=== PATIENT | male | born 2000 | race Two or more races ===

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

== ENCOUNTER 2018-04-27 13:04 | Observation (INO) | payer SELFPAY ==
[~2018-04-27] VITALS: Ht 190.5 cm; Wt 118.3 kg
[~2018-04-27 13:04] MED LIST changes: -HYDROCODON-ACE1 EAC7 PO
[2018-04-27 13:43] LABS: HEMATOCRIT 42.1 % (38.0-50.0); MCH 32.8 PG (29.0-34.0); MCHC 35.6 G/DL (30.0-36.0); MCV 92.1 FL (86-99); PLATELET COUNT 191 K/uL (156-360); RBC DIS.WIDTH-SD 40.8 % (39-53); RED BLOOD COUNT 4.57 M/uL (4.00-5.50); WHITE BLOOD COUNT 12.8 K/uL (4.1-10.2)
[2018-04-27 14:13] LABS: CHLORIDE 109 MEQ/L (99-109); POTASSIUM 3.6 MEQ/L (3.7-5.4); SODIUM 142 MEQ/L (136-147)
[2018-04-27 14:19] LABS: CREATININE 0.8 MG/DL (0.6-1.3); GFR ESTIMATE (CALCULATED) > 59 mL/min/ (58.99-99999); GLUCOSE 102 mg/dL (70-99); UREA NITROGEN (BUN) 10 mg/dL (9-23)
[2018-04-27 18:11] VITALS: BP 173/99
[2018-04-27 20:04] VITALS: BP 146/80
[2018-04-27 23:59] VITALS: BP 137/68
[2018-04-28 03:36] VITALS: BP 130/63
[2018-04-28 05:32] LABS: HEMATOCRIT 41.7 % (38.0-50.0); HEMOGLOBIN 14.3 G/DL (12.5-16.6); MCH 31.9 PG (29.0-34.0); MCHC 34.3 G/DL (30.0-36.0); MCV 93.1 FL (86-99); PLATELET COUNT 227 K/uL (156-360); RBC DIS.WIDTH-CV 12.1 % (11.8-14.6); RBC DIS.WIDTH-SD 41.3 % (39-53); RED BLOOD COUNT 4.48 M/uL (4.00-5.50)
[2018-04-28 07:44] VITALS: BP 127/58
[2018-04-28 12:16] VITALS: BP 132/77
[2018-04-28 16:12] VITALS: BP 142/79
[2018-04-28 23:37] VITALS: BP 149/68
[2018-04-29 06:31] LABS: HEMATOCRIT 41.2 % (38.0-50.0); HEMOGLOBIN 13.9 G/DL (12.5-16.6); MCH 31.8 PG (29.0-34.0); MCHC 33.7 G/DL (30.0-36.0); MCV 94.3 FL (86-99); PLATELET COUNT 208 K/uL (156-360); RBC DIS.WIDTH-SD 41.8 % (39-53); RED BLOOD COUNT 4.37 M/uL (4.00-5.50); WHITE BLOOD COUNT 7.7 K/uL (4.1-10.2)
[2018-04-29 06:49] LABS: CHLORIDE 104 MEQ/L (99-109); CREATININE 0.7 MG/DL (0.6-1.3); GFR ESTIMATE (CALCULATED) > 59 mL/min/ (58.99-99999); GLUCOSE 101 mg/dL (70-99); POTASSIUM 4.1 MEQ/L (3.7-5.4); SODIUM 140 MEQ/L (136-147); UREA NITROGEN (BUN) 11 mg/dL (9-23)
[2018-04-29 08:10] VITALS: BP 152/56
[2018-04-29] MEDS ORDERED: HYDROCODON-ACE1 EAC7 PO (08:31)
== END 2018-04-29 10:59 | disposition home or self-care (01) ==
LOC: EME 13:04 → EDOF 13:42 → 3EAST 13:42 → EDOF 13:42 → ENRESERV 13:52 → 3EAST 17:38
PROVIDERS: Emergency Medicine; Physician Assistant Medical; Surgery
PROC: 0KQ80ZZ Repair Left Upper Arm Muscle, Open Approach (ICD-10-PCS; principal; 2018-04-27)
PROC: 3E0234Z Introduction of Serum, Toxoid and Vaccine into Muscle, Percutaneous Approach (ICD-10-PCS; principal; 2018-04-27)
PROC: 0HDEXZZ Extraction of Left Lower Arm Skin, External Approach (ICD-10-PCS; principal; 2018-04-27)
PROC: 05QY0ZZ Repair Upper Vein, Open Approach (ICD-10-PCS; principal; 2018-04-27)
DX: S45.812A Laceration of other specified blood vessels at shoulder and upper arm level, left arm, initial encounter (principal); S56.222A Laceration of other flexor muscle, fascia and tendon at forearm level, left arm, initial encounter; S51.012A Laceration without foreign body of left elbow, initial encounter; S51.842A Puncture wound with foreign body of left forearm, initial encounter; S60.229A Contusion of unspecified hand, initial encounter; F63.81 Intermittent explosive disorder; F17.210 Nicotine dependence, cigarettes, uncomplicated; W25.XXXA Contact with sharp glass, initial encounter; W45.8XXA Other foreign body or object entering through skin, initial encounter; W22.09XA Striking against other stationary object, initial encounter; Y93.89 Activity, other specified
CPT/HCPCS: 80048; 85027; 99281; 99284; G0378; J0330; J0690; J1170; J1644; J2250; J3010; J7120

== ENCOUNTER → 2018-04-27 | Day surgery (SDC) | payer OTHER ==
[~2018-04-27] MED LIST changes: +AUGMENTIN875 MG PO; +HYDROCODON-ACE1 EAC7 PO
== END | disposition home or self-care (01) ==
LOC: SDC 14:04
DX: Z76.89 Persons encountering health services in other specified circumstances (principal)